=== PATIENT | male | born 1985 | race Caucasian/White ===

== ENCOUNTER → 2020-11-15 | Outpatient (CLI) | payer OTHER ==
--- NOTE | 2020-11-15 14:41 | XR ---
EXAMINATION TYPE: XR ribs LT w pa chest xray DATE OF EXAM: 11/15/2020 COMPARISON: NONE HISTORY: Pain TECHNIQUE: Frontal view of the chest and 4 views of the left ribs are submitted. FINDINGS: There is a mildly displaced fracture involving the anterolateral left sixth rib. Lung field is clear. Remaining osseous structures intact. IMPRESSION: Mildly displaced fracture anterolateral left sixth rib.
== END | disposition home or self-care (01) ==
LOC: RADXRYALE 14:22
PROVIDERS: ATTEND Physician Assistant Medical
DX: S22.32XA Fracture of one rib, left side, initial encounter for closed fracture (principal); R07.9 Chest pain, unspecified; R07.82 Intercostal pain